=== PATIENT | female | born 1985 | race African-American/Black ===

== ENCOUNTER 2018-05-14 19:54 | Emergency (ER) | payer SELFPAY ==
[2018-05-14 19:59] VITALS: BP 122/74; PULSE 88; TEMP 98; BMI 47.0
--- NOTE | 2018-05-14 20:49 | PDOC ---
History of Present Illness - General Chief Complaint: Pain Stated Complaint: ABD PAIN, DIARRHEA Time Seen by Provider: 05/14/18 20:47 - History of Present Illness Initial Comments: 33 yo morbidly obese F w a hx of Asthma, R leg DVT, HTN, HCL presents with 2 days of nausea but no emesis, over 10 bouts of watery diarrhea, and abdominal cramps after eating reheated "dirty rice and dirty meatballs" Which she got for free from the [facility] yesterday. She denies any recent fevers, chills, or infections. Denies chest pain, SOB, or difficulty breathing. Denies headache, blurry vision or neck pain. Denies back pain, leg pain, calf pain, dizziness or lightheadedness. PCP: None Allergies: Dust, Roaches, peanut butter Social Hx: "1 blayne here and there," alcohol recreationally, occasional marijuana usage. Denies other illicit substances. Past History - Past Medical History Allergies/Adverse Reactions: Allergies Allergy/AdvReac Type Severity Reaction Status Date / Time No Known Allergies Allergy Verified 05/14/18 19:59 Home Medications: Ambulatory Orders Mag Hydrox/Al Hydrox/Simeth [Mylanta *Suspension*] 30 ml PO ONCE #1 cup Mag Hydrox/Al Hydrox/Simeth [Mylanta Suspension -] 30 ml PO Q6H #1 bottle Asthma: Yes COPD: No Other medical history: DVT - Suicide/Smoking/Psychosocial Hx Smoking History: Never smoked Review of Systems - Review of Systems Comments:: CONSTITUTIONAL: Absent: fever, no chills, no fatigue EYES: Absent: visual changes ENT: Absent: ear pain, no sore throat CARDIOVASCULAR: Absent: chest pain, no palpitations RESPIRATORY: Absent: cough, no SOB GI: Present: Abdominal pain, nausea, diarrhea. Absent: no vomiting, no constipation GENITOURINARY: Absent: dysuria, no frequency, no hematuria MUSKULOSKELETAL: Absent: back pain, no arthralgia, no myalgia SKIN: Absent: rash NEURO: Absent: headache *Physical Exam - Vital Signs Last Vital Signs Temp Pulse Resp BP Pulse Ox 98.0 F 88 18 122/74 99 05/14/18 19:56 05/14/18 19:56 05/14/18 19:56 05/14/18 19:56 05/14/18 19:56 - Physical Exam Comments: GENERAL: Well-appearing, well-nourished. No apparent distress. HEENT: Normocephalic, atraumatic. PERRL, EOM intact. CARDIOVASCULAR: Normal S1, S2. Regular rate and rhythm. PULMONARY: Clear to auscultation bilaterally. ABDOMEN: Hyperactive BS. Soft and non-distended. No TTP in all 4 quadrants. EXTREMITIES: Normal ROM in all four extremities. No gross deformities. SKIN: Warm, dry. No rash NEUROLOGICAL: No focal neurological deficits. ED Treatment Course - LABORATORY CBC & Chemistry Diagram: 05/14/18 21:50 05/14/18 21:50 Medical Decision Making - Medical Decision Making 33 yo morbidly obese F w a hx of Asthma, R leg DVT, HTN, HCL presents with 2 days of nausea but no emesis, over 10 bouts of watery diarrhea, and abdominal cramps after eating reheated "dirty rice and dirty meatballs" Which she got for free from the [facility] yesterday. DD includes but not limited to: Bacillis cereus food poisoning, other food poisoning, gastroenteritis, pancreatitis, . Plan: Cbc, Cmp, lipase, Hcg, EKG, IV hydration, pepcid, maalox, zofran, acetaminophen, re-assess. Will not DC patient unless she can successfully eat a meal and pass a PO challenge. Will DC with PCP PRESTON and meds - maalox, zantac *DC/Admit/Observation/Transfer Diagnosis at time of Disposition: Food poisoning - Discharge Dispostion Disposition: HOME Condition at time of disposition: Stable Decision to Admit order: No - Referrals Referrals: Stoney Cantrell MD [Staff Physician] - - Patient Instructions Printed Discharge Instructions: How to Avoid Food Poisoning, DI for Food Poisoning Additional Instructions: You came into the ER with nausea and diarrhea. We believe you likely got food poisoning. The medications we gave you in the ER made you feel better. We are sending these medications to your pharmacy - please make sure to go and pick them up. Please make sure to schedule a follow up appointment with your primary care doctor in the next 3 to 5 days to make sure your abdominal pain, nausea, and diarrhea has gone away and that you are getting better. Please come back to the emergency room if your pain worsens, you can't tolerate eating any foods, or have any other new or worsening concerns. Thank you for coming to the [facility]'s ER. We hope you feel better soon! Print Language: HUNGARIAN - Post Discharge Activity
[2018-05-14] MEDS ORDERED: ONDANSETRON 4 MG/2 ML VIAL IVPUSH ONE (20:59)
[2018-05-14] MEDS ORDERED: SODIUM CHLORIDE 0.9% 500 ML INFUS.BAG IV ONE (20:59)
[2018-05-14] MEDS ORDERED: MAG HYDROX/AL HYDROX/SIMETH 30 ML UNIT-DOSE CUP PO ONE (21:00)
[2018-05-14] MEDS ORDERED: FAMOTIDINE 20 MG/50 ML IVPB 20 MG/50 ML MG IVPB ONE ×2 (21:00→22:06)
[2018-05-14] MEDS ORDERED: ACETAMINOPHEN 1000 MG/100 ML VIAL (NON FORMULARY) IVPB ONE (22:01)
[2018-05-14] MEDS ORDERED: MAG HYDROX/AL HYDROX/SIMETH 30 ML UNIT-DOSE CUP ONE ×2 (22:05→22:07)
[2018-05-14] MEDS ORDERED: ONDANSETRON 4 MG/2 ML VIAL ONE (22:06)
--- NOTE | 2018-05-14 22:14 | PDOC ---
Attending Attestation - Resident Resident Name: Buddy Lopes - ED Attending Attestation I have performed the following: I have examined & evaluated the patient, The case was reviewed & discussed with the resident, I agree w/resident's findings & plan, Exceptions are as noted - HPI HPI: 05/14/18 22:11 33-year-old female with history of asthma, right lower extremities DVT, hypertension, hyperlipidemia presents with nausea, vomiting, left upper quadrant pain and diarrhea. Patient reports that she ate some rice and meat balls from [employer] yesterday. Today she started developing some crampy left upper abdominal pain. She reported multiple loose stools but no fevers. Came to the ER. - Physicial Exam PE: 05/14/18 22:11 GENERAL: Awake, alert, and fully oriented, in no acute distress. Obese HEAD: No signs of trauma EYES: PERRLA, EOMI, sclera anicteric, conjunctiva clear ENT: Auricles normal inspection, hearing grossly normal, nares patent, dry mucous membranes. NECK: Normal ROM, supple LUNGS: Breath sounds equal, clear to auscultation bilaterally. No wheezes, and no crackles HEART: Regular rate and rhythm, normal S1 and S2, no murmurs, rubs or gallops ABDOMEN: Soft, LUQ TTP. No guarding, no rebound. No masses EXTREMITIES: Normal range of motion, no edema. No clubbing or cyanosis. No cords, erythema, or tenderness NEUROLOGICAL: Cranial nerves II through XII grossly intact. Normal speech, normal gait SKIN: Warm, Dry, normal turgor, no rashes or lesions noted. - Medical Decision Making 05/14/18 22:13 Vital Signs Temp Pulse Resp BP Pulse Ox 98.0 F 88 18 122/74 99 05/14/18 19:56 05/14/18 19:56 05/14/18 19:56 05/14/18 19:56 05/14/18 19:56 I suspect patient likely has food poisoning. We'll obtain labs and give IV fluids and treat symptoms. If workup is unremarkable the patient feels better, we'll discharge patient home with supportive care. 05/15/18 00:00 CBC, BMP 05/14/18 21:50 05/14/18 21:50 CMP Sodium 137 mmol/L (136-145) 05/14/18 21:50 Potassium 4.1 mmol/L (3.5-5.1) 05/14/18 21:50 Chloride 108 mmol/L (98-107) H 05/14/18 21:50 Carbon Dioxide 24 mmol/L (21-32) 05/14/18 21:50 Anion Gap 5 MMOL/L (8-16) L 05/14/18 21:50 BUN 19 mg/dL (7-18) H 05/14/18 21:50 Creatinine 0.8 mg/dL (0.55-1.3) 05/14/18 21:50 Creat Clearance w eGFR > 60 (>60) 05/14/18 21:50 Random Glucose 95 mg/dL (74-106) 05/14/18 21:50 Calcium 9.1 mg/dL (8.5-10.1) 05/14/18 21:50 Total Bilirubin 0.2 mg/dL (0.2-1) 05/14/18 21:50 AST 24 U/L (15-37) 05/14/18 21:50 ALT 26 U/L (13-61) 05/14/18 21:50 Alkaline Phosphatase 77 U/L (45-117) 05/14/18 21:50 Total Protein 8.1 g/dl (6.4-8.2) 05/14/18 21:50 Albumin 3.2 g/dl (3.4-5.0) L 05/14/18 21:50 Lipase 332 U/L (73-393) 05/14/18 21:50 Heart Score/ECG Review #1 ECG reviewed & interpreted by me at: 21:30 05/14/18 22:13 NSR 80, on std/paul, normal xis, normal intervals, T wave flat III, QTC 447 msec
[2018-05-14 22:24] LABS: URINE APPEARANCE CLEAR; URINE BILIRUBIN NEGATIVE (<2.0 mg/dL); URINE COLOR LTYELLOW; URINE GLUCOSE (UA) NEGATIVE (NEGATIVE); URINE KETONE NEGATIVE (NEGATIVE); URINE LEUK ESTERASE NEGATIVE (NEGATIVE); URINE NITRITE NEGATIVE (NEGATIVE); URINE PROTEIN 2+ (NEGATIVE); URINE UROBILINOGEN NEGATIVE mg/dL (0.2-1.0)
[2018-05-14 22:28] LABS: EPI CELLS RARE /HPF (FEW); URINE MUCUS RARE
[2018-05-14 22:37] LABS: BASO % 0.6 % (0-2.0); EOS % 1.3 % (0-4.5); HEMATOCRIT 35.6 % (32.4-45.2); HEMOGLOBIN 11.6 GM/dL (10.7-15.3); LYMPH % 34.8 % (8-40); MCH 28.3 pg (25.7-33.7); MCHC 32.5 g/dl (32.0-36.0); MEAN CELL VOLUME 86.9 fl (80-96); MEAN PLT VOLUME 8.1 fl (7.5-11.1); NEUT % 51.3 % (42.8-82.8); PLATELET COUNT 352 K/MM3 (134-434); RDW 15.9 % (11.6-15.6); WHITE BLOOD COUNT 5.2 K/mm3 (4.0-10.0)
[2018-05-14 22:48] LABS: ALBUMIN 3.2 g/dl (3.4-5.0); ALK PHOS 77 U/L (45-117); ANION GAP 5 MMOL/L (8-16); BILIRUBIN,TOTAL 0.2 mg/dL (0.2-1); BLOOD UREA NITROGEN 19 mg/dL (7-18); CALCIUM 9.1 mg/dL (8.5-10.1); CHLORIDE 108 mmol/L (98-107); CO2 24 mmol/L (21-32); CREATININE 0.8 mg/dL (0.55-1.3); GLUCOSE,RANDOM 95 mg/dL (74-106); LIPASE 332 U/L (73-393); POTASSIUM 4.1 mmol/L (3.5-5.1); SGOT/AST 24 U/L (15-37); SGPT/ALT 26 U/L (13-61); SODIUM 137 mmol/L (136-145); TOT PROT 8.1 g/dl (6.4-8.2)
--- NOTE | 2018-05-15 18:03 | EKG ---
Test Reason : Blood Pressure : / mmHG Vent. Rate : 080 BPM Atrial Rate : 080 BPM P-R Int : 188 ms QRS Dur : 076 ms QT Int : 388 ms P-R-T Axes : 068 062 024 degrees QTc Int : 447 ms NORMAL SINUS RHYTHM NORMAL ECG NO PREVIOUS ECGS AVAILABLE Confirmed by DEVENDRA RASHID MD ([id number]) on 05/15/2018 6:03:01 PM Referred By: Confirmed By:DEVENDRA RASHID MD
== END 2018-05-15 06:13 | disposition home or self-care (01) ==
LOC: JER 19:54
PROC: 3E033GC Introduction of Other Therapeutic Substance into Peripheral Vein, Percutaneous Approach (ICD-10-PCS; principal; 2018-05-14)
PROC: 3E033GC Introduction of Other Therapeutic Substance into Peripheral Vein, Percutaneous Approach (ICD-10-PCS; 2018-05-14)
PROC: 3E033NZ Introduction of Analgesics, Hypnotics, Sedatives into Peripheral Vein, Percutaneous Approach (ICD-10-PCS; 2018-05-14)
DX: T62.8X1A Toxic effect of other specified noxious substances eaten as food, accidental (unintentional), initial encounter (principal); R10.9 Unspecified abdominal pain; Y92.098 Other place in other non-institutional residence as the place of occurrence of the external cause; I10 Essential (primary) hypertension; E78.00 Pure hypercholesterolemia, unspecified; J45.909 Unspecified asthma, uncomplicated; Z86.718 Personal history of other venous thrombosis and embolism
CPT/HCPCS: 36415; 80053; 81003; 81015; 83690; 84703; 85025; 93005; 93010; 99282-25; J0131

== ENCOUNTER 2018-05-23 21:44 | Emergency (ER) | payer SELFPAY ==
[2018-05-23 21:53] VITALS: BP 117/74; PULSE 81; TEMP 97.7; BMI 45.4
--- NOTE | 2018-05-23 21:55 | PDOC ---
History of Present Illness - General Chief Complaint: Shortness of Breath Stated Complaint: SHORTNESS OF BREATH Time Seen by Provider: 05/23/18 21:54 History Source: Patient Exam Limitations: No Limitations, Other (pt poor historian) - History of Present Illness Initial Comments: Pt is a 33 yo F, with PMH of asthma, HTN, HLD, and DVT in R leg (previously on lovenox), presenting with complaints of SOB after walking. She has been homeless "off and on," and has been walking more frequently outside. She also complains of increased swelling and pain in both of her legs. Pt has not been compliant with any medication and has not had PCP follow-up. She denies any headache, vision changes, chest pain, syncope, nausea/vomiting, abdominal pain, or diarrhea/constipation. Pt also states her skin is "itchy all over" bc she rubbed an air freshener on herself to smell better. She says she has not taken a shower in some time. Pt admits to occasional alcohol and cigarette use (1-2 cigarettes "once in a while") and other drug use. Pt denies recent travel, recent surgery, estrogen use, and other sick contacts. 05/23/18 23:56 Past History - Travel Traveled outside of the country in the last 30 days: No Close contact w/someone who was outside of country & ill: No - Past Medical History Allergies/Adverse Reactions: Allergies Allergy/AdvReac Type Severity Reaction Status Date / Time No Known Allergies Allergy Verified 05/23/18 21:50 Home Medications: Ambulatory Orders Mag Hydrox/Al Hydrox/Simeth [Mylanta *Suspension*] 30 ml PO ONCE #1 cup Mag Hydrox/Al Hydrox/Simeth [Mylanta Suspension -] 30 ml PO Q6H #1 bottle Asthma: Yes COPD: No - Suicide/Smoking/Psychosocial Hx Smoking History: Current every day smoker Number of Cigarettes Smoked Daily: 5 Information on smoking cessation initiated: No Review of Systems - Review of Systems Able to Perform ROS?: Yes Is the patient limited Cymraes proficient: No Constitutional: Yes: Weight Stable. No: Chills, Diaphoresis, Fever, Loss of Appetite, Night Sweats, Weakness HEENTM: No: Blurred Vision, Recent change in vision, Double Vision, Nose Congestion, Hearing Loss, Throat Pain, Difficulty Swallowing Respiratory: Yes: Shortness of Breath, SOB with Exertion. No: Cough, Orthopnea , SOB at Rest, Wheezing Cardiac (ROS): No: Chest Pain, Edema, Irregular Heart Rate, Lightheadedness, Palpitations, Syncope, Chest Tightness ABD/GI: No: Abdominal Distended, Constipated, Diarrhea, Nausea, Poor Appetite, Poor Fluid Intake, Vomiting : No: Burning, Dysuria, Frequency, Incontinence, Urgency Musculoskeletal: Yes: Other (Pain and swelling in legs b/l from walking.). No: Back Pain, Joint Pain, Muscle Weakness Integumentary: Yes: Pruritus. No: Bruising, Change in Color Neurological: No: Headache, Numbness, Seizure, Weakness, Unsteady Gait, Ataxia, Dizziness Psychiatric: No: Sleep Pattern Change, Change in Appetite Endocrine: No: Increased Urine, Change in Weight Hematologic/Lymphatic: Yes: Blood Clots. No: Anemia, Easy Bleeding, Easy Bruising All Other Systems: Reviewed and Negative *Physical Exam - Vital Signs Last Vital Signs Temp Pulse Resp BP Pulse Ox 97.7 F 81 20 117/74 100 05/23/18 21:51 05/23/18 21:51 05/23/18 21:51 05/23/18 21:51 05/23/18 21:51 - Physical Exam General Appearance: Yes: Nourished, Appropriately Dressed, Obese. No: Apparent Distress HEENT: positive: EOMI, OZIEL, Normal ENT Inspection, Normal Voice, Pharynx Normal , Hearing Grossly Normal. negative: Scleral Icterus (R), Scleral Icterus (L), Tonsillar Exudate, Tonsillar Erythema, Rhinorrhea Neck: positive: Trachea midline, Normal Thyroid, Supple. negative: Tender, Rigid, Lymphadenopathy (R), Lymphadenopathy (L) Respiratory/Chest: positive: Lungs Clear, Normal Breath Sounds. negative: Chest Tender, Respiratory Distress, Accessory Muscle Use, Crackles, Wheezing Cardiovascular: positive: Regular Rhythm, Regular Rate, S1, S2, Edema (b/l LE pitting edema). negative: JVD, Murmur Vascular Pulses: Carotid (R): 4+, Carotid (L): 4+ Gastrointestinal/Abdominal: positive: Normal Bowel Sounds, Soft, Organomegaly, Protuberent. negative: Tender, Flat, Pulsatile Mass, Guarding, Rebound, Tenderness Rectal Exam: positive: deferred Lymphatic: negative: Adenopathy, Tenderness Musculoskeletal: positive: Normal Inspection. negative: CVA Tenderness Extremity: positive: Normal Capillary Refill, Pelvis Stable, Pedal Edema, Swelling. negative: Normal Inspection, Normal Range of Motion, Tender Integumentary: positive: Normal Color, Dry, Warm, Swelling. negative: Jaundice , Diaphoresis, Rash Neurologic: positive: solutions operator II-XII NML intact, Fully Oriented, Alert, Normal Mood/ Affect, Normal Response, Motor Strength 5/5 Medical Decision Making - Medical Decision Making Pt was seen at bedside, also will be seen by attending Dr. Loco. Pt presenting with complaints of SOB after walking. She has been homeless "off and on," and has been walking more frequently outside. She also complains of increased swelling and pain in both of her legs. She has PMH of asthma, HTN, HLD, and DVT in R leg (previously on lovenox). Pt has not been compliant with any medication and has not had PCP follow-up. She denies any headache, vision changes, chest pain, syncope, nausea/vomiting, abdominal pain, or diarrhea/constipation. Pt also states her skin is "itchy all over" bc she rubbed an air freshener on herself to smell better. She says she has not taken a shower in some time. PE showed normal lung sounds and work of breathing, no wheezing. Vital signs stable. Pt has small, non-draining blisters on toes b/l from walking. Pt has pitting edema up to mid shins b/l, with no leg tenderness on palpation. Considering asthma exacerbation vs PE. PT currently has no tachycardia, O2 saturation 100%. Cannot apply PERC rule due to pt hx of DVT and pt has b/l leg swelling. Ordered work-up including CBC, CMP, coags, d-dimer, chest x-ray, and b/l LE doppler. . Provided Benadryl 25 mg PO and 1 nebulizer albuterol treatment for improvement of SOB and pruritus. Will continue to reassess pt and monitor for symptomatic improvement. 05/23/18 22:33 Nursing staff attempting to draw labs. Pt continues to ask to take a shower and asks "to make me an admitted patient so I can take a shower." Explained to pt that we are running labs and imaging, and would admit as necessary based on results. 05/23/18 23:15 CBC WNL. Pending other labs. Pt being taken to US for b/l lower extremity doppler. 05/23/18 23:40 Called by ultrasound bc pt was being "unresponsive" with US staff. I went to US , and asked pt to open her eyes and sit up, which she did without difficulty. Lab called stating not enough blood in coag tube for coags and d-dimer. Nursing staff will re-draw when pt returns from US. 05/23/18 23:42 Pt signed out to Dr. Elena. Awaiting further lab tests and results of LE doppler. 05/24/18 00:04 *DC/Admit/Observation/Transfer Diagnosis at time of Disposition: Shortness of breath - Discharge Dispostion Disposition: HOME Condition at time of disposition: Improved Decision to Admit order: No - Referrals Referrals: [facility] [place] Internal Med at [place] [Provider Group] - Patient Instructions Printed Discharge Instructions: DI for Shortness of Breath Additional Instructions: You were seen in the ER today for shortness of breath. Please follow-up with your primary care doctor within 1-2 days to discuss your visit and make sure your symptoms have improved. Please return to the ER if you have any worsening pain in your legs, worsening shortness of breath, loss of consciousness, inability to tolerate food or fluids, or any other concerns. - Post Discharge Activity
[2018-05-23] MEDS ORDERED: ALBUTEROL SO4 0.083% IH SOL 2.5 MG/3 ML VIAL.NEB. NEB ONE ×2 (22:22→22:30)
[2018-05-23] MEDS ORDERED: diphenhydrAMINE HCL 25 MG CAPSULE (FP) PO ONE ×2 (22:22→22:30)
--- NOTE | 2018-05-23 22:33 | PDOC ---
Attending Attestation - HPI HPI: 05/23/18 22:34 The patient is a 33 year old female, with a significant PMH of asthma, R leg DVT , HTN, and HCL who presents to the emergency department with bilateral leg pain. The patient states the bilateral leg pain is worse after walking. The patient denies chest pain, shortness of breath, headache and dizziness. Denies fever, chills, nausea, vomit, diarrhea and constipation. Denies dysuria, frequency, urgency and hematuria. Allergies: NKA Past surgical history: None reported. Social history: No reported alcohol, drug or cigarette use. <Talya Goodman - Last Filed: 05/23/18 22:34> - Resident Resident Name: Noelle Rendon - ED Attending Attestation I have performed the following: I have examined & evaluated the patient, The case was reviewed & discussed with the resident, I agree w/resident's findings & plan - HPI HPI: 05/23/18 22:32 Pt comes with multiple complaints; alise nixon is her SOB and he hx of DVTs - Physicial Exam PE: 05/24/18 01:29 Agree with resident exam - Medical Decision Making 05/23/18 22:32 Pt will have basic labs as well as a D dimer and Duplex studies. 05/24/18 01:06 WBC and chem normal; Ddimer pending. 05/24/18 01:29 Patient Name: ROSIE ANN Exam: Bilateral lower extremity venous Doppler sonogram. Clinical indication: Bilateral lower extremity swelling. Prior history of DVT.. Findings The study is somewhat limited due to the patient's body habitus. There is normal compression, augmentation, and spontaneous color Doppler flow demonstrated from the bilateral calf through to the bilateral common femoral vein inclusive. There is diffuse lower extremity edema. Impression: No bilateral lower extremity DVT. 05/24/18 04:51 Patient Name: ROSIE ANN THIS IS A PRELIMINARY REPORT FROM [facility] DATE OF SERVICE: 2018-05-24 03:56:34 IMAGES: [id number] Exam: CT angiogram of the thorax using pulmonary embolus protocol Clinical indication:Shortness of breath. Prior studies:None available. Technique: Axial IV contrast-enhanced CT images of the thorax using pulmonary embolism protocol were performed. Coronal and sagittal reformats were performed. In addition, maximum projection maximum intensity pixel multiplanar imaging of the pulmonary arterial tree was performed for increased anatomic detail and diagnostic interpretation. Findings: Although the degree of contrast enhancement within the pulmonary arteries is slightly suboptimal it is still dense enough for diagnostic purposes. There are no pulmonary emboli. The pulmonary parenchyma is clear. There is no pleural abnormality. There are no enlarged axillary, hilar or mediastinal lymph nodes, by size criteria. The mediastinal structures are unremarkable. The visualized portions of the upper abdomen are within normal limits. The visualized bony structures are unremarkable for the patient's age. Impression: 1. No pulmonary blood. 2. Unremarkable CT of the thorax. <Zuly Loco - Last Filed: 05/24/18 04:51>
[2018-05-23 23:32] LABS: BASO % 0.6 % (0-2.0); EOS % 3.4 % (0-4.5); HEMATOCRIT 37.7 % (32.4-45.2); HEMOGLOBIN 12.3 GM/dL (10.7-15.3); LYMPH % 45.4 % (8-40); MCH 28.2 pg (25.7-33.7); MCHC 32.6 g/dl (32.0-36.0); MEAN CELL VOLUME 86.4 fl (80-96); MEAN PLT VOLUME 7.9 fl (7.5-11.1); MONO % 13.3 % (3.8-10.2); NEUT % 37.3 % (42.8-82.8); PLATELET COUNT 333 K/MM3 (134-434); RBC 4.36 M/mm3 (3.60-5.2); RDW 15.4 % (11.6-15.6); WHITE BLOOD COUNT 7.4 K/mm3 (4.0-10.0)
[2018-05-24 00:12] LABS: ALBUMIN 3.3 g/dl (3.4-5.0); ALK PHOS 79 U/L (45-117); ANION GAP 7 MMOL/L (8-16); BILIRUBIN,TOTAL 0.3 mg/dL (0.2-1); BLOOD UREA NITROGEN 12 mg/dL (7-18); CALCIUM 8.8 mg/dL (8.5-10.1); CHLORIDE 109 mmol/L (98-107); CO2 24 mmol/L (21-32); CREATININE 0.8 mg/dL (0.55-1.3); GLUCOSE,RANDOM 73 mg/dL (74-106); POTASSIUM 4.4 mmol/L (3.5-5.1); SGOT/AST 34 U/L (15-37); SGPT/ALT 25 U/L (13-61); SODIUM 140 mmol/L (136-145)
[2018-05-24 02:13] LABS: INR 0.96 (0.83-1.09); PROTHROMBIN TIME (PATIENT) 11.3 SEC (9.7-13.0)
[2018-05-24 02:15] LABS: ACTIVATED PTT 24.1 SECONDS (25.2-36.5)
--- NOTE | 2018-05-24 03:09 | PDOC ---
*Physical Exam - Vital Signs Last Vital Signs Temp Pulse Resp BP Pulse Ox 97.7 F 81 20 117/74 100 05/23/18 21:51 05/23/18 21:51 05/23/18 21:51 05/23/18 21:51 05/23/18 21:51 - Physical Exam Comments: 05/24/18 03:10 GENERAL: Awake, alert, and fully oriented, in no acute distress HEAD: No signs of trauma, normocephalic, atraumatic EYES: PERRLA, EOMI, sclera anicteric, conjunctiva clear LUNGS: No distress, speaks full sentences, clear to auscultation bilaterally HEART: Regular rate and rhythm, normal S1 and S2, no murmurs, rubs or gallops, peripheral pulses normal and equal bilaterally. EXTREMITIES: Normal inspection, Normal range of motion, no edema. No clubbing or cyanosis. NEUROLOGICAL: Cranial nerves II through XII grossly intact. Normal speech, normal gait, no focal sensorimotor deficits SKIN: Warm, Dry, normal turgor, no rashes or lesions noted. ED Treatment Course - LABORATORY CBC & Chemistry Diagram: 05/23/18 23:23 05/23/18 23:23 - ADDITIONAL ORDERS Additional order review: Laboratory Results 05/24/18 05/24/18 05/24/18 01:50 01:50 01:09 PT with INR 11.30 INR 0.96 PTT (Actin FS) 24.1 L D-Dimer 860 H Sodium Potassium Chloride Carbon Dioxide Anion Gap BUN Creatinine Creat Clearance w eGFR Random Glucose Calcium Total Bilirubin AST ALT Alkaline Phosphatase Total Protein Albumin Serum , Qual Negative 05/23/18 05/23/18 05/23/18 23:23 23:23 23:23 PT with INR Cancelled INR Cancelled PTT (Actin FS) Cancelled D-Dimer Cancelled Sodium 140 Potassium 4.4 Chloride 109 H Carbon Dioxide 24 Anion Gap 7 L BUN 12 Creatinine 0.8 Creat Clearance w eGFR > 60 Random Glucose 73 L Calcium 8.8 Total Bilirubin 0.3 AST 34 ALT 25 Alkaline Phosphatase 79 Total Protein 8.0 Albumin 3.3 L Serum , Qual 05/23/18 23:23 RBC 4.36 MCV 86.4 MCHC 32.6 RDW 15.4 MPV 7.9 Neutrophils % 37.3 L D Lymphocytes % 45.4 H D Monocytes % 13.3 H Eosinophils % 3.4 D Basophils % 0.6 - RADIOLOGY Radiology Studies Ordered: Category Date Time Status CHEST CTA [CT] Stat CT Scan 05/24/18 02:56 Ordered - Medications Given in the ED: ED Medications Discontinued Medications Generic Name Dose Route Start Last Admin Trade Name Orly PRN Reason Stop Dose Admin Albuterol Sulfate 1 amp 05/23/18 22:22 05/23/18 22:50 Ventolin 0.083% Nebulizer Soln - NEB 05/23/18 22:23 1 amp ONCE ONE Administration Diphenhydramine HCl 25 mg 05/23/18 22:22 05/23/18 22:50 Benadryl - PO 05/23/18 22:23 25 mg ONCE ONE Administration Medical Decision Making - Medical Decision Making 05/24/18 03:[address] Rendon asthma, HTN, HLD, and DVT in R leg here today complaining of shortness of breath and leg swelling. Pending D-dimer, CTA if positive. DVT US negative. D-dimer positive. IV US placed in R AC. Pending CTA. 05/24/18 04:56 CTA done, negative for PE and other acute pathology. Patient states that she is feeling better, requesting shower. Will discharge. *DC/Admit/Observation/Transfer Diagnosis at time of Disposition: Shortness of breath - Discharge Dispostion Disposition: HOME Condition at time of disposition: Improved - Referrals Referrals: [facility] [place] Internal Med at [place] [Provider Group] - Patient Instructions Printed Discharge Instructions: DI for Shortness of Breath Additional Instructions: You were seen in the ER today for shortness of breath. Please follow-up with your primary care doctor within 1-2 days to discuss your visit and make sure your symptoms have improved. Please return to the ER if you have any worsening pain in your legs, worsening shortness of breath, loss of consciousness, inability to tolerate food or fluids, or any other concerns. - Post Discharge Activity
--- NOTE | 2018-05-24 09:43 | EKG ---
Test Reason : Blood Pressure : / mmHG Vent. Rate : 085 BPM Atrial Rate : 085 BPM P-R Int : 190 ms QRS Dur : 080 ms QT Int : 382 ms P-R-T Axes : 069 069 039 degrees QTc Int : 454 ms NORMAL SINUS RHYTHM NORMAL ECG WHEN COMPARED WITH ECG OF 14-MAY-2018 21:29, NO SIGNIFICANT CHANGE WAS FOUND Confirmed by SALVADOR RODRIGUEZ MD ([id number]) on 05/24/2018 9:43:02 AM Referred By: Confirmed By:SALVADOR RODRIGUEZ MD
== END 2018-05-24 05:40 | disposition home or self-care (01) ==
LOC: JER 21:44
PROC: 3E0F7GC Introduction of Other Therapeutic Substance into Respiratory Tract, Via Natural or Artificial Opening (ICD-10-PCS; principal; 2018-05-23)
DX: R06.02 Shortness of breath (principal); J45.990 Exercise induced bronchospasm; I10 Essential (primary) hypertension; E78.5 Hyperlipidemia, unspecified; Z86.718 Personal history of other venous thrombosis and embolism; Z59.0 Homelessness; Z91.14 Patient's other noncompliance with medication regimen
CPT/HCPCS: 36415; 71275-TC; 80053; 84703; 85025; 85379; 85610; 85730; 93005; 93010; 93970-TC; 99282-25

== ENCOUNTER 2018-06-13 19:30 | Emergency (ER) | payer SELFPAY ==
[2018-06-13 19:37] VITALS: BP 108/69; PULSE 92; TEMP 97.7; BMI 47.7
--- NOTE | 2018-06-13 19:39 | PDOC ---
History of Present Illness - General Chief Complaint: Edema Stated Complaint: EDEMA Time Seen by Provider: 06/13/18 19:38 History Source: Patient Exam Limitations: No Limitations - History of Present Illness Initial Comments: 06/13/18 20:02 33 yo F with a hx of asthma, HTN, HLD, recurrent leg swelling, and right DVT ( 2010) presents to the emergency department with bilateral leg swelling that acutely worsened since last night. She states that she has a baseline of LE edema, but generally not unbearable pain and no difficulties with shoe fitting. She now states it is painful throughout the ankle and calf region bilaterally. She currently is homeless and has to sit in shelters for 12+ hours per day and ride [place] She denies the following: recent surgery, recent immobilization, hormone/contraceptive use, recent long travels, international travels, and shortness of breath. Denies the following: fever, chills, nausea, vomiting, visual changes, SOB, chest pain, abdominal pain, dysuria, hematuria, diarrhea, melena, hematochezia, and anemia. Pmhx: Refer to above Shx: C/S 2012 Meds: albuterol Allergies: peanuts Social: Endorses tobacco and alcohol use. Denies substance abuse. Past History - Past Medical History Allergies/Adverse Reactions: Allergies Allergy/AdvReac Type Severity Reaction Status Date / Time peanut Allergy Intermediate Verified 06/13/18 19:56 Home Medications: Ambulatory Orders NK [No Known Home Medication] 05/24/18 Asthma: Yes COPD: No CHF: No - Suicide/Smoking/Psychosocial Hx Smoking History: Smoker current status UNK Have you smoked in the past 12 months: No Number of Cigarettes Smoked Daily: 5 Information on smoking cessation initiated: No Hx Alcohol Use: No Drug/Substance Use Hx: No Substance Use Type: None Review of Systems - Review of Systems Able to Perform ROS?: Yes Is the patient limited [place] proficient: No Constitutional: No: Chills, Diaphoresis, Fever, Night Sweats, Weakness HEENTM: No: Recent change in vision, Nose Pain, Throat Pain, Mouth Pain Respiratory: No: Cough, Shortness of Breath, Hemoptysis Cardiac (ROS): Yes: Edema. No: Chest Pain, Lightheadedness, Palpitations, Syncope, Chest Tightness ABD/GI: No: Constipated, Diarrhea, Nausea, Rectal Bleeding, Vomiting, Abdominal cramping, Tarry Stools : No: Burning, Dysuria, Frequency, Hematuria Musculoskeletal: No: Back Pain Integumentary: No: Erythema, Lesions, Pallor, Pruritus, Rash Neurological: No: Headache, Numbness, Paresthesia, Ataxia Psychiatric: Yes: Anxiety, Stressors Endocrine: No: Unexplained Weight Gain *Physical Exam - Vital Signs Last Vital Signs Temp Pulse Resp BP Pulse Ox 97.7 F 92 H 16 108/69 96 06/13/18 19:34 06/13/18 19:34 06/13/18 19:34 06/13/18 19:34 06/13/18 19:34 - Physical Exam General Appearance: Yes: Nourished, Appropriately Dressed, Obese HEENT: positive: EOMI, OZIEL, Normal Voice Neck: positive: Trachea midline. negative: Lymphadenopathy (R), Lymphadenopathy (L) Respiratory/Chest: positive: Lungs Clear, Normal Breath Sounds. negative: Chest Tender, Respiratory Distress, Accessory Muscle Use Cardiovascular: positive: Regular Rhythm, Regular Rate, S1, S2. negative: Systolic Murmur Gastrointestinal/Abdominal: positive: Normal Bowel Sounds, Soft, Protuberent. negative: Tender Lymphatic: negative: Adenopathy Extremity: positive: Pedal Edema, Swelling (bilateral LE swelling from the knees to the ankles. No rashes noted on exam. No erythema appreciated bilaterally. No tenderness to palpation in the calves. ). negative: Calf Tenderness, Erythema Integumentary: positive: Normal Color, Dry, Warm Neurologic: positive: Fully Oriented, Alert, Normal Mood/Affect, Motor Strength 5/5. negative: Sensory Deficit Medical Decision Making - Medical Decision Making 06/13/18 20:16 33 yo F with a hx of asthma, HTN, HLD, recurrent leg swelling, and right DVT ( 2010) presents to the emergency department with bilateral leg swelling that acutely worsened since last night. Initial vitals": Initial Vital Signs Temp Pulse Resp BP Pulse Ox 97.7 F 92 H 16 108/69 96 06/13/18 19:34 06/13/18 19:34 06/13/18 19:34 06/13/18 19:34 06/13/18 19:34 Work up: ddx: leg edema secondary to venous insufficiency vs CHF vs DVT vs infectious etiology (cellulitis) likely venous insufficiency given the hx. DVT/PE wells criteria low given her hx , physical exam, and vital signs. no asymmetry in the legs. She was given compression stockings in the department to use. She was instructed on how to use them. We advised her to keep her legs elevated and to attain movement throughout the day. she stated she will be going to the welfare office Thursday morning to seek housing assistance. She was able to ambulate out of the department. Dispo: Discharge. *DC/Admit/Observation/Transfer Diagnosis at time of Disposition: Venous insufficiency - Discharge Dispostion Disposition: HOME Condition at time of disposition: Stable Decision to Admit order: No - Referrals Referrals: Julio C Elmore MD [Staff Physician] - - Patient Instructions Printed Discharge Instructions: DI for Varicose Veins Additional Instructions: You have been seen in the emergency department for your leg swelling. Based on your history and physical exam, it has been determined that you have venous insufficiency likely from the chronic standing. Please follow up with the vascular surgeon that has been referred to you within 48-72 hours. In addition, please follow up with the internal medicine clinic that has been referred to you within 48-72 hours. Please use compression stockings, keep your legs elevated, and try to do walking exercises. Please return to the emergency department if you develop shortness of breath, chest pain, fever/chills, and/or if one of your legs becomes red and more swollen than the other. Thank you. - Post Discharge Activity
--- NOTE | 2018-06-13 20:19 | PDOC ---
Attending Attestation - Resident Resident Name: Jp Enriquez - ED Attending Attestation I have performed the following: I have examined & evaluated the patient, The case was reviewed & discussed with the resident, I agree w/resident's findings & plan - Medical Decision Making 06/13/18 20:31 Pt is looking for a place to stay the night. She states that she wants compression stockings for her legs <Zuly Loco - Last Filed: 06/13/18 20:31> - HPI HPI: 06/13/18 20:37 The patient is a 33 year old female, with a significant PMH of asthma, HTN, HLD , recurrent leg swelling, and right DVT (2010) who presents to the emergency department with bilateral leg swelling. Patient states she has leg swelling at baseline but can usually wear her shoes. Patient reports the leg swelling worsened last night. Patient is currently homeless and usually sits for many hours at a time. Patient was at a assisted recently but was kicked out and does not have any family members or friends who can offer her a place to stay in. Patient had negative DVT study back in April. The patient denies chest pain, shortness of breath, headache and dizziness. Denies fever, chills, nausea, vomit, diarrhea and constipation. Denies dysuria, frequency, urgency and hematuria. Allergies: NKA Past surgical history: Social history: Occasional alcohol, drug, and cigarette use. - Physicial Exam PE: 06/13/18 20:37 ADULT EXAM GENERAL: Awake, alert, and fully oriented, in no acute distress HEAD: No signs of trauma EYES: PERRLA, EOMI, sclera anicteric, conjunctiva clear ENT: Auricles normal inspection, hearing grossly normal, nares patent, oropharynx clear without exudates. Moist mucosa NECK: Normal ROM, supple, no lymphadenopathy, JVD, or masses LUNGS: Breath sounds equal, clear to auscultation bilaterally. No wheezes, and no crackles HEART: Regular rate and rhythm, normal S1 and S2, no murmurs, rubs or gallops ABDOMEN: Soft, nontender, normoactive bowel sounds. No guarding, no rebound. No masses EXTREMITIES: Normal range of motion. No clubbing or cyanosis. No cords, erythema, or tenderness. (+) Bilateral leg edema and early venous stasis. NEUROLOGICAL: Cranial nerves II through XII grossly intact. Normal speech, normal gait SKIN: Warm, Dry, normal turgor, no rashes or lesions noted. - Medical Decision Making <Talya Goodman - Last Filed: 06/13/18 21:03>
== END 2018-06-13 21:59 | disposition home or self-care (01) ==
LOC: JER 19:30
DX: I87.2 Venous insufficiency (chronic) (peripheral) (principal); I10 Essential (primary) hypertension; E78.00 Pure hypercholesterolemia, unspecified; Z86.718 Personal history of other venous thrombosis and embolism; Z59.0 Homelessness
CPT/HCPCS: 99283-25